=== PATIENT | female | born 1940 | race African-American/Black ===

== ENCOUNTER 2018-08-07 08:13 | Inpatient (IN) ==
[2018-08-07] MEDS ORDERED: ONDANSETRON 4 MG/2 ML VIAL IV PRN (08:30)
[2018-08-07] MEDS ORDERED: ASPIRIN 325 MG TABLET PO STA (08:30)
[2018-08-07 08:39] LABS: Basophils # 0.1 10*3/uL (0.0-0.2); Basophils % 0.1 % (0.0-0.8); Hematocrit 25.4 VOL% (35.7-47.0); Hemoglobin 7.8 GM/DL (12.0-16.0); Immature Granulocytes % 0.2 %; Immature Granulocytes Absolute 0.18 #; Lymphocytes # 78.9 10*3/uL (1.4-4.0); Lymphocytes % 89.6 % (21.3-54.2); Mean Corpuscular HGB Conc 30.7 GM/DL (32-36); Mean Corpuscular Hemoglobin 30 PG (27-34); Mean Corpuscular Volume 98.4 FL (87-102); Monocytes # 5.1 10*3/uL (0.11-0.8); Monocytes % 5.8 % (1.7-12.7); NRBC # 0.06 10*3/uL; Neutrophils # 3.8 10*3/uL (1.4-7.4); Neutrophils % 4.3 % (38.7-73.9); Platelet Count 101 T/CUMM (130-400); Red Blood Count 2.58 MC/CUMM (3.8-5.5)
[2018-08-07 08:43] LABS: White Blood Count 88.1 T/CUMM (4-12)
[2018-08-07 08:55] LABS: Alanine Aminotransferase 17 U/L (13-56); Albumin 2.5 G/DL (3.4-5.0); Alkaline Phosphatase 84 U/L (45-117); Aspartate Amino Transferase 37 U/L (0-37); Bilirubin,Total < 0.39 MG/DL (0.2-1.0); Blood Urea Nitrogen 31 MG/DL (7-18); Calcium 7.3 MG/DL (8.5-10.1); Glucose 139 MG/DL (74-106); Osmolality,Calculated 296.7 MOS/KG (273-304); Potassium 3.2 MMOL/L (3.5-5.1); Sodium 145 MMOL/L (136-145); Total Protein 5.3 G/DL (6.4-8.3)
[2018-08-07] MEDS ORDERED: POTASSIUM CHLORIDE 20 MEQ TABLET PO STA (09:12)
[2018-08-07 09:22] LABS: Band Neutrophils 1 % (0-10); Lymphocytes 92 % (20-55); Segmented Neutrophils 6 % (50-85); Total Cells Counted 100
[2018-08-07 09:23] LABS: Atypical Lymphocytes Few; Hypochromasia 1+; Microcytosis 1+; Ovalocytes Slight; Platelet Estimate Decreased; Smudge Cells Few
[2018-08-07 09:24] LABS: Amorphous Crystals,Urine Occasional /HPF (Few); Apearance,Urine CLOUDY (Clear); Bilirubin,Urine Negative (Negative); Blood, Urine Large mg/dL (Negative); Glucose,Urine (UA) Negative (Negative); Hyaline Casts,Urine 5 /LPF (0-3); Ketones,Urine Negative (Negative); Nitrite,Urine Negative (Negative); Protein,Urine 100 MG/DL; RBC,Urine 133 /HPF (0-4); Squamous Epithelial Cell,Urine Occasional /HPF (0-10); Urine Color Yellow (Yellow); Urine Specific Gravity 1.014 (1.001-1.035); Urine Urobilinogen < 2.0 EU/DL (0.2-1.0); WBC,Urine 3 /HPF (0-6)
[2018-08-07 09:27] LABS: Barbiturates Screen,Urine Negative (Negative); Benzodiazepines Screen,Urine Negative (Negative); Cannabinoid Screen,Urine Negative (Negative); Opiate Screen,Urine Positive (Negative); Phencyclidine Screen,Urine Negative (Negative)
[2018-08-07] MEDS ORDERED: ACETAMINOPHEN 325 MG TABLET PO PRN (11:11)
[2018-08-07] MEDS ORDERED: traMADol 50 MG TABLET PO PRN (11:15)
[2018-08-07] MEDS ORDERED: BENZONATATE 100 MG CAPSULE PO PRN (11:16)
[2018-08-07 12:16] LABS: Calcium 8.9 MG/DL (8.5-10.1); Osmolality,Calculated 289.4 MOS/KG (273-304); Potassium 4.2 MMOL/L (3.5-5.1)
[2018-08-07 12:43] LABS: % Iron Saturation 18.8 % (18-50); Ferritin 164.6 ng/ml (8-252)
[2018-08-07] MEDS: SODIUM CHLORIDE 0.9% 1,000 ML IV SCH ×2 (13:55→21:35)
[2018-08-07] MEDS: POLYETHYLENE GLYCOL POWDER 17 GM PACK PO SCH (16:55)
[2018-08-07] MEDS ORDERED: MORPHINE 4 MG/1 ML VIAL IV PRN (23:05)
[2018-08-07] MEDS ORDERED: ACETAMINOPHEN 500 MG TABLET PO PRN (23:06)
[2018-08-08 05:07] LABS: Eosinophils # 0.1 10*3/uL (0.0-0.87); Eosinophils % 0.1 % (0.00-10.9); Hemoglobin 8.1 GM/DL (12.0-16.0); Immature Granulocytes % 0.3 %; Immature Granulocytes Absolute 0.17 #; Lymphocytes # 56.4 10*3/uL (1.4-4.0); Lymphocytes % 89.5 % (21.3-54.2); Mean Corpuscular Hemoglobin 29 PG (27-34); Mean Corpuscular Volume 97.5 FL (87-102); Mean Platelet Volume 12.3 FL (9.6-12.0); Monocytes % 4.8 % (1.7-12.7); NRBC # 0.15 10*3/uL; Neutrophils # 3.4 10*3/uL (1.4-7.4); Neutrophils % 5.3 % (38.7-73.9); Platelet Count 121 T/CUMM (130-400); Red Blood Count 2.77 MC/CUMM (3.8-5.5); Red Cell Distribution Width 18.2 % (9.3-17.3)
[2018-08-08 05:16] LABS: White Blood Count 63.1 T/CUMM (4-12)
[2018-08-08 05:37] LABS: Calcium 8.3 MG/DL (8.5-10.1); Potassium 4.1 MMOL/L (3.5-5.1); Thyroid Stimulating Hormone 2.04 uIU/ml (0.358-3.74)
[2018-08-08 06:03] LABS: Atypical Lymphocytes Few; Hypochromasia 1+; Lymphocytes 94 % (20-55); Nucleated Red Blood Cells 1 (0-5); Ovalocytes Slight; Segmented Neutrophils 3 % (50-85); Total Cells Counted 100
[2018-08-08 06:04] LABS: Platelet Estimate Normal; Smudge Cells Few
[2018-08-08] MEDS: POTASSIUM CHLORIDE 20 MEQ TABLET PO SCH (10:01)
[2018-08-08] MEDS: ATORVASTATIN 20 MG TABLET PO SCH (10:01)
[2018-08-08] MEDS: RIVAROXABAN 20 MG TABLET PO SCH (10:01)
[2018-08-08] MEDS: hydroCHLOROthiazide 25 MG TABLET PO SCH (10:01)
[2018-08-08] MEDS: POLYETHYLENE GLYCOL POWDER 17 GM PACK PO SCH (10:02)
[2018-08-08] MEDS: PANTOPRAZOLE 40 MG TABLET PO SCH (10:02)
[2018-08-08] MEDS: ASPIRIN CHEW 81 MG TABLET PO SCH (10:02)
[2018-08-08] MEDS: PIPERACILLIN/TAZOBACTAM 3,375 MG in SODIUM CHLORIDE 0.9% 100 ML IV SCH ×2 (10:16→18:05)
[2018-08-08 13:08] LABS: Apearance,Urine Slightly Hazy (Clear); Bilirubin,Urine Negative (Negative); Glucose,Urine (UA) Negative (Negative); Ketones,Urine Negative (Negative); Nitrite,Urine Negative (Negative); Protein,Urine Negative; Urine Color Yellow (Yellow); Urine Specific Gravity 1.014 (1.001-1.035)
[2018-08-08 13:09] LABS: Bacteria,Urine Occasional /HPF (Few); Blood, Urine Large mg/dL (Negative); RBC,Urine 59 /HPF (0-4); Squamous Epithelial Cell,Urine Occasional /HPF (0-10); Urine Urobilinogen < 2.0 EU/DL (0.2-1.0); WBC,Urine 4 /HPF (0-6)
[2018-08-08] MEDS: SODIUM CHLORIDE 0.9% 1,000 ML IV SCH ×2 (16:00→16:41)
[2018-08-09] MEDS: PIPERACILLIN/TAZOBACTAM 3,375 MG in SODIUM CHLORIDE 0.9% 100 ML IV SCH ×3 (02:30→17:11)
[2018-08-09] MEDS: SODIUM CHLORIDE 0.9% 1,000 ML IV SCH ×3 (04:42→23:23)
[2018-08-09 05:52] LABS: Basophils # 0.1 10*3/uL (0.0-0.2); Basophils % 0.2 % (0.0-0.8); Eosinophils # 0.1 10*3/uL (0.0-0.87); Eosinophils % 0.2 % (0.00-10.9); Hematocrit 25.6 VOL% (35.7-47.0); Hemoglobin 7.9 GM/DL (12.0-16.0); Immature Granulocytes % 0.4 %; Immature Granulocytes Absolute 0.15 #; Lymphocytes # 36.9 10*3/uL (1.4-4.0); Lymphocytes % 87.5 % (21.3-54.2); Mean Corpuscular HGB Conc 30.9 GM/DL (32-36); Mean Corpuscular Hemoglobin 30 PG (27-34); Mean Corpuscular Volume 96.2 FL (87-102); Mean Platelet Volume 12.5 FL (9.6-12.0); Monocytes # 2.3 10*3/uL (0.11-0.8); Monocytes % 5.4 % (1.7-12.7); NRBC # 0.17 10*3/uL; Neutrophils # 2.7 10*3/uL (1.4-7.4); Neutrophils % 6.3 % (38.7-73.9); Platelet Count 141 T/CUMM (130-400); Red Blood Count 2.66 MC/CUMM (3.8-5.5); Red Cell Distribution Width 18.3 % (9.3-17.3)
[2018-08-09 06:05] LABS: Calcium 8.4 MG/DL (8.5-10.1); Osmolality,Calculated 284.3 MOS/KG (273-304)
[2018-08-09 06:27] LABS: White Blood Count 42.2 T/CUMM (4-12)
[2018-08-09 07:44] LABS: Atypical Lymphocytes Few; Hypochromasia 1+; Lymphocytes 87 % (20-55); Microcytosis Slight; Ovalocytes Slight; Platelet Estimate Adequate; Segmented Neutrophils 8 % (50-85); Smudge Cells Few; Total Cells Counted 100
[2018-08-09] MEDS ORDERED: MAGNESIUM HYDROXIDE SUSP 30 ML UDCUP PO PRN (08:10)
[2018-08-09] MEDS: VANCOMYCIN INJ 1,000 MG in SODIUM CHLORIDE 0.9% 250 ML IV SCH (09:06)
[2018-08-09] MEDS: RIVAROXABAN 20 MG TABLET PO SCH (09:07)
[2018-08-09] MEDS: POLYETHYLENE GLYCOL POWDER 17 GM PACK PO SCH (09:07)
[2018-08-09] MEDS: POTASSIUM CHLORIDE 20 MEQ TABLET PO SCH (09:07)
[2018-08-09] MEDS: PANTOPRAZOLE 40 MG TABLET PO SCH (09:07)
[2018-08-09] MEDS: ATORVASTATIN 20 MG TABLET PO SCH (09:07)
[2018-08-09] MEDS: hydroCHLOROthiazide 25 MG TABLET PO SCH (09:07)
[2018-08-09] MEDS: ASPIRIN CHEW 81 MG TABLET PO SCH (09:07)
[2018-08-10] MEDS: PIPERACILLIN/TAZOBACTAM 3,375 MG in SODIUM CHLORIDE 0.9% 100 ML IV SCH ×3 (02:00→18:08)
[2018-08-10 05:09] LABS: Basophils # 0.1 10*3/uL (0.0-0.2); Basophils % 0.2 % (0.0-0.8); Eosinophils # 0.1 10*3/uL (0.0-0.87); Eosinophils % 0.3 % (0.00-10.9); Hematocrit 25.4 VOL% (35.7-47.0); Hemoglobin 7.9 GM/DL (12.0-16.0); Immature Granulocytes % 0.4 %; Immature Granulocytes Absolute 0.17 #; Lymphocytes # 33.8 10*3/uL (1.4-4.0); Lymphocytes % 84.5 % (21.3-54.2); Mean Corpuscular HGB Conc 31.1 GM/DL (32-36); Mean Corpuscular Hemoglobin 30 PG (27-34); Mean Corpuscular Volume 96.2 FL (87-102); Mean Platelet Volume 11.6 FL (9.6-12.0); Monocytes # 2.8 10*3/uL (0.11-0.8); Monocytes % 6.9 % (1.7-12.7); NRBC # 0.08 10*3/uL; Neutrophils # 3.1 10*3/uL (1.4-7.4); Neutrophils % 7.7 % (38.7-73.9); Platelet Count 146 T/CUMM (130-400); Red Blood Count 2.64 MC/CUMM (3.8-5.5); Red Cell Distribution Width 17.7 % (9.3-17.3); White Blood Count 39.9 T/CUMM (4-12)
[2018-08-10 05:31] LABS: Calcium 8.5 MG/DL (8.5-10.1); Potassium 3.9 MMOL/L (3.5-5.1)
[2018-08-10 06:20] LABS: Lymphocytes 2 % (20-55); Platelet Estimate Adequate; Polychromasia Few; Segmented Neutrophils 95 % (50-85); Total Cells Counted 100
[2018-08-10] MEDS: ATORVASTATIN 20 MG TABLET PO SCH (09:24)
[2018-08-10] MEDS: VANCOMYCIN INJ 1,000 MG in SODIUM CHLORIDE 0.9% 250 ML IV SCH (09:25)
[2018-08-10] MEDS: RIVAROXABAN 20 MG TABLET PO SCH (09:25)
[2018-08-10] MEDS: ASPIRIN CHEW 81 MG TABLET PO SCH (09:25)
[2018-08-10] MEDS: POTASSIUM CHLORIDE 20 MEQ TABLET PO SCH (09:25)
[2018-08-10] MEDS: PANTOPRAZOLE 40 MG TABLET PO SCH (09:25)
[2018-08-10] MEDS: hydroCHLOROthiazide 25 MG TABLET PO SCH (09:25)
[2018-08-10] MEDS: POLYETHYLENE GLYCOL POWDER 17 GM PACK PO SCH (09:46)
[2018-08-10] MEDS: FLUCONAZOLE 100 MG TABLET PO SCH (11:21)
[2018-08-10] MEDS: SODIUM CHLORIDE 0.9% 1,000 ML IV SCH ×2 (18:08→20:05)
[2018-08-11] MEDS: PIPERACILLIN/TAZOBACTAM 3,375 MG in SODIUM CHLORIDE 0.9% 100 ML IV SCH ×2 (01:44→10:34)
[2018-08-11 05:22] LABS: Basophils # 0.1 10*3/uL (0.0-0.2); Basophils % 0.2 % (0.0-0.8); Eosinophils # 0.2 10*3/uL (0.0-0.87); Eosinophils % 0.4 % (0.00-10.9); Hematocrit 25.2 VOL% (35.7-47.0); Hemoglobin 7.8 GM/DL (12.0-16.0); Immature Granulocytes % 0.7 %; Immature Granulocytes Absolute 0.26 #; Lymphocytes # 33.2 10*3/uL (1.4-4.0); Lymphocytes % 84.5 % (21.3-54.2); Mean Corpuscular Hemoglobin 30 PG (27-34); Mean Corpuscular Volume 96.9 FL (87-102); Mean Platelet Volume 11.5 FL (9.6-12.0); Monocytes # 2.5 10*3/uL (0.11-0.8); Monocytes % 6.3 % (1.7-12.7); NRBC # 0.05 10*3/uL; Neutrophils # 3.1 10*3/uL (1.4-7.4); Neutrophils % 7.9 % (38.7-73.9); Platelet Count 169 T/CUMM (130-400); White Blood Count 39.4 T/CUMM (4-12)
[2018-08-11 05:52] LABS: Calcium 8.5 MG/DL (8.5-10.1); Osmolality,Calculated 283.1 MOS/KG (273-304); Potassium 3.7 MMOL/L (3.5-5.1)
[2018-08-11 06:21] LABS: Atypical Lymphocytes Few; Lymphocytes 86 % (20-55); Metamyelocytes 1 %; Segmented Neutrophils 9 % (50-85); Smudge Cells Few; Total Cells Counted 100
[2018-08-11 06:22] LABS: Acanthocytes Few; Anisocytosis 1+; Hypochromasia Slight; Microcytosis 1+; Ovalocytes Slight
[2018-08-11 06:23] LABS: Platelet Estimate Adequate; Schistocytes Slight
[2018-08-11] MEDS: SODIUM CHLORIDE 0.9% 1,000 ML IV SCH (06:31)
[2018-08-11] MEDS: VANCOMYCIN INJ 1,000 MG in SODIUM CHLORIDE 0.9% 250 ML IV SCH (09:03)
[2018-08-11] MEDS: ASPIRIN CHEW 81 MG TABLET PO SCH (09:04)
[2018-08-11] MEDS: hydroCHLOROthiazide 25 MG TABLET PO SCH (09:04)
[2018-08-11] MEDS: POLYETHYLENE GLYCOL POWDER 17 GM PACK PO SCH (09:04)
[2018-08-11] MEDS: POTASSIUM CHLORIDE 20 MEQ TABLET PO SCH (09:04)
[2018-08-11] MEDS: FLUCONAZOLE 100 MG TABLET PO SCH (09:04)
[2018-08-11] MEDS: ATORVASTATIN 20 MG TABLET PO SCH (09:04)
[2018-08-11] MEDS: PANTOPRAZOLE 40 MG TABLET PO SCH (09:04)
[2018-08-11] MEDS: RIVAROXABAN 20 MG TABLET PO SCH (09:05)
[2018-08-11 12:49] VITALS: BP 141/68
== END 2018-08-11 15:30 | disposition home or self-care (01) | DRG 202 ==
LOC: EDUNIT# → N.EDINP 08:13 → N.ED 08:13 → SUATTDRO 11:11 → N.2W 12:28 → N.TELEN 16:21 → SUATTDRO 08-09 13:46
PROVIDERS: ADMIT Internal Medicine; ATTEND Internal Medicine

== ENCOUNTER 2020-10-11 00:40 | Observation (INO) ==
[2020-10-11 01:22] LABS: Basophils % 0.1 % (0.0-0.8); Eosinophils % 0.4 % (0.00-10.9); Hematocrit 33.4 VOL% (35.7-47.0); Hemoglobin 11.1 GM/DL (12.0-16.0); Immature Granulocytes % 0.3 %; Immature Granulocytes Absolute 0.02 #; Lymphocytes # 3.7 10*3/uL (1.4-4.0); Lymphocytes % 53.7 % (21.3-54.2); Mean Corpuscular HGB Conc 33.2 GM/DL (32-36); Mean Corpuscular Volume 93.6 FL (87-102); Monocytes % 9.1 % (1.7-12.7); Neutrophils % 36.4 % (38.7-73.9); Platelet Count 186 T/CUMM (130-400); Red Blood Count 3.57 MC/CUMM (3.8-5.5); Red Cell Distribution Width 15.2 % (9.3-17.3); White Blood Count 6.9 T/CUMM (4-12)
[2020-10-11 01:37] LABS: Alanine Aminotransferase 22 U/L (13-56); Albumin 3.7 G/DL (3.4-5.0); Alkaline Phosphatase 81 U/L (45-117); Aspartate Amino Transferase 26 U/L (0-37); Bilirubin,Total < 0.39 MG/DL (0.2-1.0); Blood Urea Nitrogen 30 MG/DL (7-18); Calcium 9.3 MG/DL (8.5-10.1); Carbon Dioxide 24 MMOL/L (21-32); Estimated Glom Filtration Rate 42 ML/MIN; Glucose 100 MG/DL (74-106); Osmolality,Calculated 288.1 MOS/KG (273-304); Potassium 4.2 MMOL/L (3.5-5.1); Sodium 142 MMOL/L (136-145); Total Protein 6.8 G/DL (6.4-8.3)
[2020-10-11] MEDS: ASPIRIN EC 325 MG TABLET PO STA ×2 (02:05)
[2020-10-11] MEDS: NITROGLYCERIN SL 0.4 MG TABLET SL STA (02:05)
[2020-10-11] MEDS ORDERED: ONDANSETRON 4 MG/2 ML VIAL IV ONE (02:44)
[2020-10-11] MEDS ORDERED: MORPHINE 4 MG/1 ML VIAL IV STA (02:44)
[2020-10-11] MEDS ORDERED: NITROGLYCERIN SL 0.4 MG TABLET SL STA (02:44)
[2020-10-11 03:01] LABS: Eosinophils 1 % (0-10); Lymphocytes 61 % (20-55); Platelet Estimate Normal; Segmented Neutrophils 36 % (50-85); Total Cells Counted 100
[2020-10-11 03:05] LABS: Ovalocytes Few; Schistocytes Few
[2020-10-11] MEDS ORDERED: MORPHINE 4 MG/1 ML VIAL IV PRN (04:18)
[2020-10-11] MEDS ORDERED: ACETAMINOPHEN 325 MG TABLET PO PRN (04:18)
[2020-10-11] MEDS ORDERED: GLUCAGON 1 MG VIAL IM PRN (04:18)
[2020-10-11] MEDS ORDERED: DEXTROSE 50% 25 GM/50 ML VIAL IV PRN (04:18)
[2020-10-11] MEDS ORDERED: ONDANSETRON 4 MG/2 ML VIAL IV PRN (04:18)
[2020-10-11 07:33] LABS: Risk Ratio 1.81
[2020-10-11] MEDS ORDERED: RIVAROXABAN 15 MG TABLET PO SCH (09:00)
[2020-10-11] MEDS: POTASSIUM CHLORIDE 20 MEQ TABLET PO SCH (09:36)
[2020-10-11] MEDS: ATORVASTATIN 20 MG TABLET PO SCH (09:36)
[2020-10-11] MEDS: amLODIPine 5 MG TABLET PO SCH ×2 (09:36→22:11)
[2020-10-11] MEDS ORDERED: KETOROLAC 30 MG/1 ML VIAL IV ONE (12:01)
[2020-10-11] MEDS ORDERED: ACETAMINOPHEN 325 MG TABLET PO ONE (12:02)
[2020-10-11] MEDS ORDERED: GABAPENTIN 100 MG CAPSULE PO ONE (12:02)
[2020-10-11] MEDS ORDERED: SERTRALINE 25 MG TABLET PO ONE (12:03)
[2020-10-11] MEDS: SODIUM CHLORIDE 0.45% 1,000 ML IV SCH (14:14)
[2020-10-11] MEDS: PANTOPRAZOLE 20 MG TABLET PO SCH (14:16)
[2020-10-11] MEDS: GABAPENTIN 100 MG CAPSULE PO SCH ×2 (14:20→22:11)
[2020-10-11] MEDS: ACETAMINOPHEN 325 MG TABLET PO SCH ×2 (15:22→22:11)
[2020-10-11] MEDS: SERTRALINE 25 MG TABLET PO SCH (22:11)
[2020-10-12 05:45] LABS: Basophils % 0.3 % (0.0-0.8); Eosinophils # 0.1 10*3/uL (0.0-0.87); Eosinophils % 1.1 % (0.00-10.9); Hematocrit 28.2 VOL% (35.7-47.0); Hemoglobin 9.3 GM/DL (12.0-16.0); Immature Granulocytes % 0.3 %; Immature Granulocytes Absolute 0.02 #; Lymphocytes # 3.2 10*3/uL (1.4-4.0); Lymphocytes % 52.7 % (21.3-54.2); Mean Corpuscular Volume 94.9 FL (87-102); Mean Platelet Volume 11.2 FL (9.6-12.0); Monocytes % 14.2 % (1.7-12.7); Neutrophils % 31.4 % (38.7-73.9); Platelet Count 144 T/CUMM (130-400); Red Blood Count 2.97 MC/CUMM (3.8-5.5); White Blood Count 6.1 T/CUMM (4-12)
[2020-10-12 05:54] LABS: Calcium 8.1 MG/DL (8.5-10.1); Osmolality,Calculated 291.1 MOS/KG (273-304); Potassium 4.6 MMOL/L (3.5-5.1)
[2020-10-12 05:57] LABS: PT Patient Result 10.9 SECS (9.8-11.9)
[2020-10-12 05:59] LABS: Albumin 2.8 G/DL (3.4-5.0); Bilirubin,Total 0.9 MG/DL (0.2-1.0); Calcium 8.4 MG/DL (8.5-10.1); Osmolality,Calculated 286.4 MOS/KG (273-304); Potassium 4.6 MMOL/L (3.5-5.1); Total Protein 5.7 G/DL (6.4-8.3)
[2020-10-12 06:09] LABS: Eosinophils 4 % (0-10); Hypochromasia 1+; Lymphocytes 50 % (20-55); Microcytosis 1+; Ovalocytes Slight; Platelet Estimate Adequate; Segmented Neutrophils 33 % (50-85); Total Cells Counted 100
[2020-10-12 06:10] LABS: Atypical Lymphocytes Few
[2020-10-12] MEDS ORDERED: DIAZEPAM 5 MG TABLET PO ONE ×2 (07:42→14:00)
[2020-10-12] MEDS ORDERED: MAGNESIUM SULF RIDER 2 GM in PREMIX 1 EACH IV PRN (07:42)
[2020-10-12] MEDS ORDERED: diphenhydrAMINE CAP 25 MG CAPSULE PO ONE (07:42)
[2020-10-12] MEDS ORDERED: POTASSIUM CHLORIDE RIDER 10 MEQ in PREMIX 1 EACH IV PRN (07:42)
[2020-10-12] MEDS ORDERED: diphenhydrAMINE 50 MG/1 ML VIAL IV SCH (07:49)
[2020-10-12] MEDS ORDERED: FAMOTIDINE 20 MG/2 ML VIAL IV SCH ×2 (09:00→21:00)
[2020-10-12] MEDS: ATORVASTATIN 20 MG TABLET PO SCH (09:10)
[2020-10-12] MEDS: POTASSIUM CHLORIDE 20 MEQ TABLET PO SCH (09:10)
[2020-10-12] MEDS: amLODIPine 5 MG TABLET PO SCH ×2 (09:11→21:56)
[2020-10-12] MEDS: GABAPENTIN 100 MG CAPSULE PO SCH ×3 (09:11→21:55)
[2020-10-12] MEDS: ACETAMINOPHEN 325 MG TABLET PO SCH ×3 (09:12→21:56)
[2020-10-12] MEDS: PANTOPRAZOLE 20 MG TABLET PO SCH (09:12)
[2020-10-12] MEDS: methylPREDNISolone SOD SUC 125 MG/2 ML VIAL IV SCH ×2 (10:23→14:37)
[2020-10-12] MEDS: diphenhydrAMINE CAP 25 MG CAPSULE PO SCH ×2 (11:19→18:34)
[2020-10-12] MEDS ORDERED: DIAZEPAM 5 MG TABLET ONE (13:47)
[2020-10-12] MEDS ORDERED: fentaNYL 100 MCG/2 ML VIAL ONE (14:46)
[2020-10-12] MEDS ORDERED: MIDAZOLAM 2 MG/2 ML VIAL ONE (14:46)
[2020-10-12] MEDS ORDERED: LIDOCAINE 1% 20 ML VIAL ONE (14:53)
[2020-10-12] MEDS ORDERED: NITROGLYCERIN SL 0.4 MG TABLET SL PRN (16:27)
[2020-10-12] MEDS ORDERED: ATORVASTATIN 40 MG TABLET PO SCH (16:27)
[2020-10-12] MEDS: SODIUM CHLORIDE 0.45% 1,000 ML IV SCH ×3 (20:37→20:38)
[2020-10-12] MEDS: SERTRALINE 25 MG TABLET PO SCH (21:56)
[2020-10-12] MEDS: carvediloL 3.125 MG TABLET PO SCH (21:56)
[2020-10-13 05:30] LABS: Hematocrit 27.2 VOL% (35.7-47.0); Hemoglobin 9.3 GM/DL (12.0-16.0); Immature Granulocytes % 0.4 %; Immature Granulocytes Absolute 0.04 #; Lymphocytes # 2.3 10*3/uL (1.4-4.0); Lymphocytes % 25.4 % (21.3-54.2); Mean Corpuscular HGB Conc 34.2 GM/DL (32-36); Mean Corpuscular Volume 92.8 FL (87-102); Mean Platelet Volume 11.4 FL (9.6-12.0); Monocytes % 7.2 % (1.7-12.7); Platelet Count 147 T/CUMM (130-400); Red Blood Count 2.93 MC/CUMM (3.8-5.5); Red Cell Distribution Width 14.9 % (9.3-17.3); White Blood Count 9.1 T/CUMM (4-12)
[2020-10-13 05:38] LABS: Calcium 8.1 MG/DL (8.5-10.1); Osmolality,Calculated 288.5 MOS/KG (273-304); Potassium 4.6 MMOL/L (3.5-5.1)
[2020-10-13 08:20] VITALS: BP 145/64
[2020-10-13] MEDS ORDERED: carvediloL 6.25 MG TABLET PO SCH (09:00)
[2020-10-13] MEDS: carvediloL 3.125 MG TABLET PO SCH (09:07)
[2020-10-13] MEDS: GABAPENTIN 100 MG CAPSULE PO SCH (09:21)
[2020-10-13] MEDS: ACETAMINOPHEN 325 MG TABLET PO SCH (09:21)
[2020-10-13] MEDS: POTASSIUM CHLORIDE 20 MEQ TABLET PO SCH (09:21)
[2020-10-13] MEDS ORDERED: ISOSORBIDE MONONITRATE 30 MG TABLET PO SCH (09:30)
[2020-10-13] MEDS ORDERED: CLOPIDOGREL 75 MG TABLET PO SCH (09:30)
[2020-10-13] MEDS: amLODIPine 5 MG TABLET PO SCH (10:46)
[2020-10-14] MEDS ORDERED: amLODIPine 5 MG TABLET PO SCH (09:00)
== END 2020-10-13 12:48 | disposition home or self-care (01) ==
LOC: N.ED 00:40 → N.EDINP 00:40 → SUATTDRO 04:18 → N.TELES 05:07
PROVIDERS: ADMIT Internal Medicine; ATTEND Internal Medicine Geriatric Medicine